=== PATIENT | female | born 1990 | race Two or more races ===

== ENCOUNTER 2022-02-20 14:00 | Inpatient (IN) | payer OTHER ==
[~2022-02-20] VITALS: Ht 165.1 cm; Wt 83.9 kg
[~2022-02-20 14:00] MED LIST: FOLIC ACID20 MG PO; IRON325 MG PO; PRENATAL + DHA1 EAC1 PO
== END 2022-02-28 14:14 | disposition home or self-care (01) | DRG 807 ==
LOC: OB/GYN 02-25 12:38 → LDR 02-25 12:38 → OB/GYN 02-26 16:50 → LDR 03-12 15:15
PROVIDERS: ADMIT Obstetrics & Gynecology; ATTEND Obstetrics & Gynecology
PROC: 4A1HXCZ Monitoring of Products of Conception, Cardiac Rate, External Approach (ICD-10-PCS; 2022-02-25)
PROC: 10E0XZZ Delivery of Products of Conception, External Approach (ICD-10-PCS; principal; 2022-02-26)
DX: O41.03X0 Oligohydramnios, third trimester, not applicable or unspecified (principal); Z37.0 Single live birth; O99.824 Streptococcus B carrier state complicating childbirth; Z3A.38 38 weeks gestation of pregnancy; Z20.822 Contact with and (suspected) exposure to COVID-19

== ENCOUNTER 2023-11-30 01:33 | Emergency (ER) | payer OTHER ==
[~2023-11-30] VITALS: Ht 165.1 cm; Wt 65.8 kg
[2023-11-30 03:13] LABS: HEMOGLOBIN 13.6 g/dL (12.0-15.00); MEAN CORPUSCULAR HEMOGLOBIN 27.6 pg (27.00-32.0); MEAN CORPUSCULAR HGB CONC 34.1 g/dl (32.0-36.0); PLATELET COUNT 258 K/uL (150-450); RED BLOOD COUNT 4.94 M/uL (4.00-6.00); RED CELL DISTRIBUTION WIDTH 13.4 % (11.5-14.5)
== END 2023-11-30 04:10 | disposition home or self-care (01) ==
LOC: ER 01:33
DX: U07.1 COVID-19 (principal)

== ENCOUNTER → 2024-12-02 | Emergency (ER) | payer OTHER ==
[~2024-12-02] MED LIST changes: +PEPCID AC20 MG PO; +PRENATAL TABLE1 EAC1 PO
== END | disposition left against medical advice (07) ==
LOC: ER 22:20
DX: Z53.21 Procedure and treatment not carried out due to patient leaving prior to being seen by health care provider (principal)

== ENCOUNTER 2024-12-03 00:40 | Outpatient (CLI) | payer OTHER ==
[~2024-12-03] VITALS: Ht 165.1 cm; Wt 74.8 kg
[2024-12-03 00:07] VITALS: BP 106/63
[~2024-12-03 00:40] MED LIST changes: +ACETAMINOPHEN 500 MG GEL..CAP PO ONE; -PEPCID AC20 MG PO; -PRENATAL TABLE1 EAC1 PO
[2024-12-03] MEDS ORDERED: ACETAMINOPHEN 500 MG GEL..CAP PO ONE (01:00)
[2024-12-03] MEDS ORDERED: PRENATAL TABLE1 EAC1 PO (01:08)
[2024-12-03] MEDS ORDERED: PEPCID AC20 MG PO (01:08)
[2024-12-03 02:57] VITALS: BP 102/61
[2024-12-03 06:38] VITALS: BP 100/61; O2SAT 99
[2024-12-03 12:25] VITALS: BP 108/76; O2SAT 98
[2024-12-03 12:50] VITALS: BP 108/76
== END 2024-12-03 13:25 | disposition home or self-care (01) ==
LOC: OBS/DEL 00:40
PROVIDERS: ATTEND Student in an Organized Health Care Education/Training Program
DX: O26.892 Other specified pregnancy related conditions, second trimester (principal); T14.90XA Injury, unspecified, initial encounter; W19.XXXA Unspecified fall, initial encounter; Z3A.25 25 weeks gestation of pregnancy; O26.849 Uterine size-date discrepancy, unspecified trimester; O26.859 Spotting complicating pregnancy, unspecified trimester

== ENCOUNTER 2025-02-16 19:58 | Outpatient (CLI) | payer OTHER ==
[~2025-02-16] VITALS: Ht 165.1 cm; Wt 83.5 kg
[2025-02-16 19:02] VITALS: BP 105/66; O2SAT 99
[~2025-02-16 19:58] MED LIST changes: -ACETAMINOPHEN 500 MG GEL..CAP PO ONE; +PEPCID AC20 MG PO; +PRENATAL TABLE1 EAC1 PO
[2025-02-16 20:03] VITALS: BP 107/64
[2025-02-16] MEDS ORDERED: RINGERS SOLUTION,LACTATED 1,000 ML IV SCH (20:15)
[2025-02-16 23:16] VITALS: BP 94/56
[2025-02-17 04:51] VITALS: BP 111/70
[2025-02-17 06:43] VITALS: BP 104/64; O2SAT 99
== END 2025-02-17 10:20 | disposition home or self-care (01) ==
LOC: OBS/DEL 19:58
PROVIDERS: ATTEND Student in an Organized Health Care Education/Training Program
DX: O60.03 Preterm labor without delivery, third trimester (principal); Z3A.36 36 weeks gestation of pregnancy

== ENCOUNTER 2025-03-07 08:01 | Outpatient (CLI) | payer OTHER | END 2025-03-07 09:23 | disposition home or self-care (01) | LOC: NST 08:01 | PROVIDERS: ATTEND General Practice | DX: Z34.83 Encounter for supervision of other normal pregnancy, third trimester (principal) ==

== ENCOUNTER 2025-03-10 06:10 | Inpatient (IN) | payer OTHER ==
[2025-03-10] VITALS (8 sets, daily range): BP systolic 106–130; BP diastolic 65–92
[~2025-03-10] VITALS: Ht 165.1 cm; Wt 84.4 kg
[2025-03-10] MEDS ORDERED: AMPICILLIN SODIUM 2,000 MG VIAL ONE (07:26)
[2025-03-10] MEDS ORDERED: RINGERS SOLUTION,LACTATED 1,000 ML IV SCH (07:45)
[2025-03-10] MEDS ORDERED: AMPICILLIN SODIUM 2,000 MG VIAL IV ONE (07:45)
[2025-03-10 07:52] LABS: BASO % 0.4 % (0.1-1.2); EOS # 0.06 (0.04-0.54); EOS % 0.7 % (0.7-7.0); LYMPH # 1.31 (1.18-3.74); LYMPH % 15.6 % (19.3-53.1); MEAN PLATELET VOLUME 10.10 fl (9.4-12.4); MONO # 0.64 (0.24-0.82); MONO % 7.6 % (4.7-12.5); NEUT # 6.31 (1.56-6.13); NEUT % 74.9 % (34.0-71.1); RED CELL DISTRIBUTION WIDTH 13.1 % (11.6-14.4)
[2025-03-10 08:23] LABS: ALT/SGPT 16.0 U/L (12-78); AST/SGOT 15.0 U/L (15-37); BILIRUBIN TOTAL 0.62 mg/dL (0.3-1.2); BUN CREA RATIO 22.0 (7.0-25.0); CREATININE SERUM 0.41 mg/dL (0.55-1.02); GFR 177.58; GLOBULINA 3.4 G/DL (2.4-3.5); GLUCOSE FASTING 74.0 mg/dL (65-100); OSMOLALITY SERUM 279.0 MOSM/KG (275-295)
[2025-03-10 08:24] LABS: INR 0.95
[2025-03-10] MEDS ORDERED: OXYTOCIN 500 ML IV SCH (08:45)
[2025-03-10] MEDS ORDERED: AMPICILLIN SODIUM 1,000 MG VIAL IV SCH ×2 (12:00→16:00)
[2025-03-10] MEDS ORDERED: MORPHINE SULFATE 4 MG/ML VIAL IV ONE (12:30)
[2025-03-10] MEDS ORDERED: ERYTHROMYCIN BASE OPHT 1GM EACH TUBE OP ONE (13:02)
[2025-03-10] MEDS ORDERED: OXYTOCIN 20 UNITS/1000ML RL PIGGYBAG IV ONE ×2 (13:03→16:03)
[2025-03-10] MEDS ORDERED: CHLORHEXIDINE GLUCONATE 120 ML BOTTLE TOP ONE (13:03)
[2025-03-10] MEDS ORDERED: LIDOCAINE HCL 1% 10ML VIAL ONE (13:03)
[2025-03-10] MEDS ORDERED: OXYTOCIN 1,000 ML IV SCH (16:30)
[2025-03-10] MEDS ORDERED: CHLORHEXIDINE GLUCONATE 120 ML BOTTLE TOP SCH (16:30)
[2025-03-10] MEDS ORDERED: DOCUSATE SODIUM 100MG CAP PO SCH (17:00)
[2025-03-11] VITALS: BP 113/66
[2025-03-11] MEDS ORDERED: BENZOCAINE/MENTHOL 90 ML BOTTLE TOP SCH ×2 (01:00→09:00)
[2025-03-11 08:50] VITALS: BP 149/73
[2025-03-11 12:57] LABS: BASO % 0.2 % (0.1-1.2); EOS # 0.06 (0.04-0.54); EOS % 0.5 % (0.7-7.0); LYMPH # 1.78 (1.18-3.74); LYMPH % 14.8 % (19.3-53.1); MEAN PLATELET VOLUME 10.00 fl (9.4-12.4); MONO # 0.71 (0.24-0.82); MONO % 5.9 % (4.7-12.5); NEUT # 9.41 (1.56-6.13); NEUT % 78.0 % (34.0-71.1); RED CELL DISTRIBUTION WIDTH 13.4 % (11.6-14.4)
[2025-03-11 18:53] VITALS: BP 125/75
[2025-03-12] VITALS: BP 121/75
[2025-03-12 08:00] VITALS: BP 135/80
[2025-03-12] MEDS ORDERED: IRON325 MG PO (08:27)
[2025-03-12] MEDS ORDERED: COLACE100 MG PO (08:27)
== END 2025-03-12 14:27 | disposition home or self-care (01) | DRG 807 ==
LOC: LDR 06:10 → OB/GYN 14:32
PROVIDERS: Student in an Organized Health Care Education/Training Program; ADMIT General Practice; ATTEND General Practice
PROC: 10E0XZZ Delivery of Products of Conception, External Approach (ICD-10-PCS; principal; 2025-03-10)
PROC: 0KQM0ZZ Repair Perineum Muscle, Open Approach (ICD-10-PCS; 2025-03-10)
PROC: 4A1HXCZ Monitoring of Products of Conception, Cardiac Rate, External Approach (ICD-10-PCS; 2025-03-10)
DX: O70.1 Second degree perineal laceration during delivery (principal); Z37.0 Single live birth; O99.824 Streptococcus B carrier state complicating childbirth; Z3A.39 39 weeks gestation of pregnancy